=== PATIENT | male | born 1985 | race Caucasian/White ===

== ENCOUNTER 2022-04-08 23:36 | Emergency (ER) | payer MEDICAID, OTHER, SELFPAY ==
--- NOTE | ~2022-04-08 | CT_ITS ---
EXAMINATION: CT CHEST, ABDOMEN AND PELVIS WITH CONTRAST. CLINICAL INFORMATION: Fall, trauma. COMPARISON: No pertinent prior studies are available for comparison. TECHNIQUE: Multidetector volumetric imaging was performed from the thoracic inlet through the pubic symphysis following administration of 100 mL Omnipaque 300 intravenous contrast. Sagittal and coronal reformatted images were obtained on the technologist's workstation. This CT examination was performed using dose optimization techniques as appropriate, variously including the following: *Automated exposure control *Adjustment of mA and/or kV according to patient size (this includes techniques or standardized protocols for targeted exams where dose is matched to indication/reason for exam; i.e. extremities or head) *Use of iterative reconstruction technique DLP: 903 mGy-cm FINDINGS: CHEST: Lung: Mosaic attenuation of the lung parenchyma with mild bronchial wall thickening. Platelike opacities in the lingula. No consolidation. Central airways are patent. Mediastinum: Normal heart size. No pericardial effusion. No hilar or mediastinal lymphadenopathy. Normal thyroid gland. Pericardium/Pleura: No pleural effusion. No pleural mass or thickening. No pneumothorax. Chest Wall/Axilla: No lymphadenopathy by size criteria. ABDOMEN/PELVIS: Peritoneal Space: No free air or free fluid. Liver, Gallbladder, Biliary Tree: Hepatic steatosis and hepatomegaly. No focal liver lesion. Normal gallbladder. No biliary ductal dilatation. Pancreas: Unremarkable. Spleen: Unremarkable. Adrenal Glands: Unremarkable. Kidneys and Ureters: The kidneys are normal in size, shape, and attenuation. No hydronephrosis, hydroureter, or calculi seen. No perinephric stranding. Bladder: Unremarkable. Gastrointestinal Tract: The stomach and the small bowel are nondilated. Duodenal diverticulum. Normal appendix. Diverticulosis with mild pericolonic inflammatory changes in the descending colon (13:51). No bowel obstruction. Abdominal Wall: Fat-containing left-sided inguinal hernia. Lymphovascular Structures: No pathologically enlarged lymph nodes. Normal diameter of the abdominal aorta. Pelvic Viscera: Unremarkable. Osseus Structures: No acute or aggressive osseous findings. CT/CT abdomen pelvis w IV con IMPRESSION: 1. Mosaic attenuation of the lung parenchyma with mild bronchial wall thickening suggesting some degree of air trapping in the setting of small airways disease. 2. No acute traumatic sequela. 3. Hepatic steatosis and hepatomegaly. 4. Diverticulosis with mild pericolonic inflammatory changes in the descending colon suggesting acute diverticulitis. 5. Fat-containing left inguinal hernia.
--- NOTE | ~2022-04-08 | CT_ITS ---
EXAMINATION: CT HEAD WITHOUT CONTRAST CT CERVICAL SPINE WITHOUT CONTRAST CLINICAL INFORMATION: Fall. COMPARISON: None TECHNIQUE: Contiguous axial imaging was performed from the skull base to vertex without intravenous administration of contrast. Contiguous axial imaging was performed from the upper chest through the skull base without intravenous administration of contrast. Coronal and sagittal reformats were obtained at the acquisition workstation. This CT examination was performed using dose optimization techniques as appropriate, variously including the following: *Automated exposure control *Adjustment of mA and/or kV according to patient size (this includes techniques or standardized protocols for targeted exams where dose is matched to indication/reason for exam; i.e. extremities or head) *Use of iterative reconstruction technique DLP: 775 mGy-cm FINDINGS: Head: There is no evidence of acute intracranial hemorrhage or edematous territorial infarction. There is no abnormal attenuation within the brain parenchyma. Lyles-white matter differentiation is preserved. The ventricles are normal in size and configuration. No evidence for obstructive hydrocephalus. No abnormal mass effect or midline shift. No extra-axial fluid collections. Chronic appearing deformity of the inferior right orbital rim with mucus retention cysts in the right renal left maxillary sinuses. The mastoids and middle ear cavities are clear. Cervical Spine: The atlantooccipital and atlantoaxial articulations remain well aligned. Straightening of the normal cervical lordosis. Otherwise, there is anatomic alignment of the vertebral bodies and posterior elements. No evidence of acute fracture or subluxation. Multilevel cervical spondylosis with small anterior osteophytes at C4, C5 and C6. There is no prevertebral soft tissue swelling. The thyroid gland and remaining cervical soft tissues are normal in appearance. The lung apices demonstrate no abnormalities. CT/CT cervical spine wo IV con IMPRESSION: 1. No acute intracranial pathology. 2. No acute cervical spinal fractures or malalignment.
--- NOTE | 2022-04-09 00:01 | ED_ITS ---
HPI - General Adult General Chief complaint: ETOH/Substance Use Stated complaint: etoh Time Seen by Provider: 04/09/22 00:00 Source: patient and EMS Mode of arrival: EMS Limitations: no limitations History of Present Illness HPI narrative: 37-year-old male presents to the emergency department with alcohol intoxication and possible fall. Patient tells me he was drinking tonight had about 12 beers maybe more prior to arrival. He tells me he was hanging out with friends in the last thing he remembers is falling to the ground, he tells me he was not sure if he was sleeping or not, unsure of loss of consciousness, not on blood thinners. He tells me that his friends told him that they were doing compressions on him because they thought he was . However, according to EMS patient's friends state that he was still breathing when he was lying on the ground however not opening his eyes. Patient tells me he feels great and has no complaints. He tells me he thinks he may have just been sleeping on the ground. Denies SI and HI. Denies visual, auditory and tactile hallucinations. Related Data Allergies Allergy/AdvReac Type Severity Reaction Status Date / Time No Known Allergies Allergy Verified 04/09/22 00:05 Review of Systems Review of Systems: Constitutional : No Fever, No Chills ENT/Mouth : No sore throat, No Rhinorrhea Eyes: No Eye Pain, No Swelling, No Redness Cardiovascular : No Chest Pain, No SOB Respiratory : No Cough, No Sputum Gastrointestinal : No Nausea, No Vomiting, No Diarrhea, No abdominal Pain Genitourinary : No Dysuria, No Hematuria Musculoskeletal : No joint pain, No Myalgias, No Joint Swelling Skin : No Skin Lesions, No rash Neuro : No Weakness, No Numbness Psych : No Anxiety, No Depression, No SI/HI/AH/VH All other systems reviewed and are negative Yes all other systems are reviewed and are negative [facility] Past Medical History Attestation statement: The following information was validated with the patient. Source: old records reviewed and nursing notes reviewed Social History Social History Advance Directives: No Advance Directives Information Provided: Yes Physical Exam ED Vital Signs: Vital Signs - 24 hr 04/09/22 00:05 Temperature 97.8 F Pulse Rate 124 H Respiratory Rate 18 Blood Pressure 150/81 H Pulse Oximetry 97 Oxygen Delivery Method Room Air BMI result Body Mass Index 47.0 vss Appearance: Alert.? Oriented X3.? No acute distress.? Head: Normocephalic, atraumatic, no step-offs or deformities Eyes: Pupils equal, round and reactive to light.? ENT: Pharynx normal.? Neck: Normal inspection.? Neck supple.? CVS: Normal heart rate and rhythm.? Pulses normal.? Respiratory: No respiratory distress.? Breath sounds normal.? Abdomen: Soft and nontender.? Skin: Skin warm and dry.? Normal skin color.? Normal skin turgor.? Extremities: No lower extremity edema.? No calf ttp. 5/5 strength to bilateral upper and lower extremities Neuro: Oriented X 3.? No motor deficit.? No sensory deficit. CN 2-12 intact . Patient ambulating with steady gait normal coordination. Course Reevaluation(s) Reevaluation #1: CBC appears to be within normal limits. Troponin negative, EKG nonischemic unlikely ACS. Urine clean. Urine toxicology negative. Time: 01:50 Reevaluation #2: Chemistry with elevated transaminases however patient not tender to palpation of abdomen on exam likely alcoholic hepatitis from chronic alcohol abuse.. Sign-out given to doctor Anna pending scans and laboratory studies. Time: 02:18 Medical Decision Making [facility] Narrative Medical decision making narrative: 0005 37-year-old male presents to the emergency department with acute alcohol intoxication, patient tells me he is not sure if he fell asleep on the floor fell to the ground will go up to his friend's performing CPR on him. Patient reports drinking about 12 beers tonight. Not on blood thinners. Denies SI and HI. Physical examination patient's smells like alcohol, no focal neuro deficits, lungs clear, abdomen soft nontender nondistended. Anterior chest wall not tender to palpation. Regular rate and rhythm. Will rule out rib fractures, sternal fracture. Likely patient fell asleep secondary to alcohol intoxication. Will obtain an EKG and troponin however. Medical Records Medical records reviewed: Yes I reviewed the patient's medical records. Lab Data Lab results reviewed: Yes I reviewed the patient's lab results. Result diagrams: 04/09/22 01:00 04/09/22 01:54 Labs: Lab Results 1104/09/22 04/09/22 Range/Units 01:00 01:00 01:00 WBC 6.0 (4.8-10.8) X10*3/uL RBC 4.84 (4.60-5.80) X10*6/uL Hgb 16.3 (14.0-18.0) g/dl Hct 46.1 (42.0-52.0) % MCV 95.2 (80.0-98.0) fL MCH 33.7 H (27.0-33.0) pg MCHC 35.4 (31.0-36.0) g/dl RDW 12.8 (11.0-16.0) % Plt Count 230 (160-400) X10*3/uL MPV 11.5 (9.4-12.4) fL Immature Gran % (Auto) 0.5 H (0.0-0.4) % Neut % (Auto) 78.2 H (45-73) % Lymph % (Auto) 13.7 L (20-40) % [place] % (Auto) 6.2 (2-11) % Eos % (Auto) 0.7 (0-4) % Baso % (Auto) 0.7 (0-2) % Lymph # (Auto) 0.8 L (1.2-4.9) X10*3/uL [place] # (Auto) 0.4 (0.1-1.2) X10*3/uL Eos # (Auto) 0.0 (0.0-0.4) X10*3/uL Baso # (Auto) 0.0 (0.0-0.2) X10*3/uL Abs Immat Gran (auto) 0.03 (0.00-0.03) X10*3/uL Absolute Neuts (auto) 4.7 (2.0-8.3) x10*3/uL Absolute Nucleated RBC 0.000 (0.0-0.012) X10*3/uL Nucleated RBC % (auto) 0.0 (0.0-0.2) /100WBC Sodium (135-145) mmol/L Potassium (3.3-5.1) mmol/L Chloride (96-108) mmol/L Carbon Dioxide (22-29) mmol/L Anion Gap (12-20) BUN (9-16) mg/dL Creatinine (0.5-1.4) mg/dL Estim Creat Clear Calc Estimated GFR Random Glucose (60-115) mg/dL Calcium (8.4-10.2) mg/dL Magnesium (1.6-2.6) mg/dL Total Bilirubin (0.0-1.0) mg/dL AST (5-37) U/L ALT (0-40) U/L Alkaline Phosphatase (39-117) U/L Troponin I High Sens < 3.5 (<3.5-35.0) ng/L Total Protein (6.5-8.0) g/dL Albumin (3.5-5.0) g/dL Urine Color Yellow Urine Appearance Clear Urine pH 6.0 (5.0-9.0) Ur Specific Dillard <= 1.005 (1.005-1.025) Urine Protein 30 (1+) H (Neg-Trace) mg/dL Urine Glucose (UA) Negative (Negative) mg/dL Urine Ketones Negative (Negative) mg/dL Urine Blood Negative (Negative) Urine Nitrite Negative (Negative) Ur Leukocyte Esterase Negative (Negative) Urine RBC 0-2 (0-2) /HPF Urine WBC 0-5 (0-5) /HPF Ur Squamous Epith Cells 0-2 (0-2) /HPF Urine Bacteria None Seen (None Seen) Hyaline Casts 0-2 (0-2) /LPF Urine Opiates Screen (Not Detect) Urine Fentanyl Screen (Not Detect) Ur Barbiturates Screen (Not Detect) Ur Phencyclidine Scrn (Not Detect) Ur Amphetamines Screen (Not Detect) U Benzodiazepines Scrn (Not Detect) Urine Cocaine Screen (Not Detect) U Marijuana (THC) Screen (Not Detect) Ethyl Alcohol mg/dL COVID-19 (JAMILA) (Negative) COVID-19 Clin Com 04/09/22 04/09/22 04/09/22 Range/Units 01:00 01:35 01:54 WBC (4.8-10.8) X10*3/uL RBC (4.60-5.80) X10*6/uL Hgb (14.0-18.0) g/dl Hct (42.0-52.0) % MCV (80.0-98.0) fL MCH (27.0-33.0) pg MCHC (31.0-36.0) g/dl RDW (11.0-16.0) % Plt Count (160-400) X10*3/uL MPV (9.4-12.4) fL Immature Gran % (Auto) (0.0-0.4) % Neut % (Auto) (45-73) % Lymph % (Auto) (20-40) % [place] % (Auto) (2-11) % Eos % (Auto) (0-4) % Baso % (Auto) (0-2) % Lymph # (Auto) (1.2-4.9) X10*3/uL [place] # (Auto) (0.1-1.2) X10*3/uL Eos # (Auto) (0.0-0.4) X10*3/uL Baso # (Auto) (0.0-0.2) X10*3/uL Abs Immat Gran (auto) (0.00-0.03) X10*3/uL Absolute Neuts (auto) (2.0-8.3) x10*3/uL Absolute Nucleated RBC (0.0-0.012) X10*3/uL Nucleated RBC % (auto) (0.0-0.2) /100WBC Sodium 144 (135-145) mmol/L Potassium 4.0 (3.3-5.1) mmol/L Chloride 106 (96-108) mmol/L Carbon Dioxide 23 (22-29) mmol/L Anion Gap 19 (12-20) BUN 7 L (9-16) mg/dL Creatinine 0.74 (0.5-1.4) mg/dL Estim Creat Clear Calc 134.5 Estimated GFR > 60 Random Glucose 143 H (60-115) mg/dL Calcium 9.4 (8.4-10.2) mg/dL Magnesium 2.1 (1.6-2.6) mg/dL Total Bilirubin 0.3 (0.0-1.0) mg/dL AST 282 H (5-37) U/L ALT 287 H (0-40) U/L Alkaline Phosphatase 143 H (39-117) U/L Troponin I High Sens (<3.5-35.0) ng/L Total Protein 7.6 (6.5-8.0) g/dL Albumin 4.5 (3.5-5.0) g/dL Urine Color Urine Appearance Urine pH (5.0-9.0) Ur Specific Dillard (1.005-1.025) Urine Protein (Neg-Trace) mg/dL Urine Glucose (UA) (Negative) mg/dL Urine Ketones (Negative) mg/dL Urine Blood (Negative) Urine Nitrite (Negative) Ur Leukocyte Esterase (Negative) Urine RBC (0-2) /HPF Urine WBC (0-5) /HPF Ur Squamous Epith Cells (0-2) /HPF Urine Bacteria (None Seen) Hyaline Casts (0-2) /LPF Urine Opiates Screen Not Detected (Not Detect) Urine Fentanyl Screen Not Detected (Not Detect) Ur Barbiturates Screen Not Detected (Not Detect) Ur Phencyclidine Scrn Not Detected (Not Detect) Ur Amphetamines Screen Not Detected (Not Detect) U Benzodiazepines Scrn Not Detected (Not Detect) Urine Cocaine Screen Not Detected (Not Detect) U Marijuana (THC) Screen Not Detected (Not Detect) Ethyl Alcohol 247 mg/dL COVID-19 (JAMILA) Negative (Negative) COVID-19 Clin Com See Note ECG Data Attestation: I personally reviewed and interpreted this ECG as follows: Prior ECG tracings: available for review Interpretation: Ventricular making normal, QRS normal, QT/QTC normal. EKG with sinus tachycardia no ST elevations or inversions concerning for ischemia Critical Care Time Critical Care Time Critical Care Time: No Discharge Plan Discharge Clinical Impression: Alcoholic intoxication, Fall Patient Disposition: Still a Patient Instructions: Alcohol Intoxication (ED), Fall Prevention (ED) Additional Instructions: Take your medications as prescribed. If you were prescribed antibiotics today, it is important that you take your medication to their entirety, do not skip any doses, do not finish them early. Follow-up with your primary care provider this week. Return to the emergency department with new or worsening symptoms. Such as fev ers, chills, chest pain, shortness of breath, nausea, vomiting, dizziness, headache, vision changes, lethargy In case of emergency call 911 Referrals: Physician,Unknown J [Primary Care Provider] - 2 days Stand Alone Forms: Work/School Release
[2022-04-09 00:05] VITALS: BP 136/93; BP 150/81; PULSE 124; PULSE 140; RESP 18; TEMP 36.6; O2SAT 97; O2SAT 98; BMI 47.0
--- NOTE | 2022-04-09 00:13 | ECG_ITS ---
Test Reason : FALL Blood Pressure : / mmHG Vent. Rate : 120 BPM Atrial Rate : 120 BPM P-R Int : 154 ms QRS Dur : 068 ms QT Int : 300 ms P-R-T Axes : 034 004 017 degrees QTc Int : 424 ms Sinus tachycardia Otherwise normal ECG No previous ECGs available Referred By: Silva Sherman Electronically Signed By:YNAIV SEYMOUR MD
[2022-04-09 01:07] LABS: Basophils Percent Auto 0.7 % (0-2); Eosinophils Percent Auto 0.7 % (0-4); Hematocrit 46.1 % (42.0-52.0); Hemoglobin 16.3 g/dl (14.0-18.0); Imm Gran Abs Auto 0.03 X10*3/uL (0.00-0.03); Imm Gran Pct Auto 0.5 % (0.0-0.4); Lymphocytes Absolute Auto 0.8 X10*3/uL (1.2-4.9); Lymphocytes Percent Auto 13.7 % (20-40); MANUAL DIFF FLAG NO; Mean Corpuscular HGB Conc 35.4 g/dl (31.0-36.0); Mean Corpuscular Hemoglobin 33.7 pg (27.0-33.0); Mean Corpuscular Volume 95.2 fL (80.0-98.0); Mean Platelet Volume 11.5 fL (9.4-12.4); Monocytes Absolute Auto 0.4 X10*3/uL (0.1-1.2); Monocytes Percent Auto 6.2 % (2-11); Neutrophils Absolute Auto 4.7 x10*3/uL (2.0-8.3); Neutrophils Percent Auto 78.2 % (45-73); Platelet Count 230 X10*3/uL (160-400); Red Blood Count 4.84 X10*6/uL (4.60-5.80); Red Cell Distribution Width 12.8 % (11.0-16.0)
[2022-04-09 01:08] LABS: Appearance Urine Clear; Color Urine Yellow; Glucose Urine UA Negative (Negative); Leukocyte Esterase Urine Negative (Negative); Nitrite Urine Negative (Negative); Specific Gravity - Urine <= 1.005 (1.005-1.025); UMIC TRIGGER UACC YES; Urine Blood Negative (Negative); Urine Ketones Negative (Negative); Urine Protein 30 (1+) mg/dL (Neg-Trace)
[2022-04-09 01:10] LABS: Bacteria Urine None Seen (None Seen); Hyaline Casts Urine 0-2 /LPF (0-2); RBC Urine 0-2 /HPF (0-2); Squamous Epithelial Cell Urine 0-2 /HPF (0-2); WBC Urine 0-5 /HPF (0-5)
--- NOTE | 2022-04-09 01:11 | PC.NURSE ---
20G IV placed right hand, labs drawn, urine sample obtained, pt pending CT scan/EKG/COVID swab.
[2022-04-09 01:34] LABS: Amphetamine Screen Urine Not Detected (Not Detect); Barbiturates, Urine Not Detected (Not Detect); Benzodiazepines Screen Urine Not Detected (Not Detect); Cannabinoid Screen Urine Not Detected (Not Detect); Cocaine Screen Urine Not Detected (Not Detect); Fentanyl, urine Not Detected (Not Detect); Opiate Screen Urine Not Detected (Not Detect); Phencyclidine Screen Urine Not Detected (Not Detect)
[2022-04-09 01:39] LABS: Troponin-I High Sensitivity < 3.5 ng/L (<3.5-35.0)
[2022-04-09 02:16] LABS: COVID-19 Test Negative (Negative)
[2022-04-09 02:24] LABS: Alanine Aminotransferase 287 U/L (0-40); Albumin Level 4.5 g/dL (3.5-5.0); Alkaline Phosphatase 143 U/L (39-117); Anion Gap 19 (12-20); Aspartate Amino Transferase 282 U/L (5-37); Bilirubin Total 0.3 mg/dL (0.0-1.0); Blood Urea Nitrogen 7 mg/dL (9-16); Calcium 9.4 mg/dL (8.4-10.2); Carbon Dioxide 23 mmol/L (22-29); Chloride 106 mmol/L (96-108); Creatinine Clr Calc Pharmacy 134.5; Estimated Glomerular Filt Rate > 60; Ethanol 247 mg/dL; Glucose Random 143 mg/dL (60-115); Magnesium 2.1 mg/dL (1.6-2.6); Sodium 144 mmol/L (135-145); Total Protein 7.6 g/dL (6.5-8.0)
--- NOTE | 2022-04-09 03:18 | PC.NURSE ---
pt sleeping, RR even and unlabored, son at bedside.
[2022-04-09] MEDS: iohexoL 350 MG/ML 100 ML INFUS..BTL IV (04:09)
[2022-04-09 04:48] VITALS: BP 146/92; PULSE 103; RESP 18; TEMP 36.9; O2SAT 96
== END 2022-04-09 05:03 | disposition home or self-care (01) ==
PROVIDERS: Physician Assistant; Emergency Provider Student in an Organized Health Care Education/Training Program
DX: F10.129 Alcohol abuse with intoxication, unspecified (principal); M54.6 Pain in thoracic spine; M54.2 Cervicalgia; R51.9 Headache, unspecified; R10.9 Unspecified abdominal pain; Z20.822 Contact with and (suspected) exposure to COVID-19; Z79.899 Other long term (current) drug therapy
CPT/HCPCS: 36415; 70450; 71260; 72125; 74177; 80053; 80307; 81001; 82077; 83735; 84484; 85025; 87635; 93005; 99284; Q9967